=== PATIENT | male | born 1995 | race Caucasian/White ===

== ENCOUNTER 2017-05-12 05:27 | Day surgery (SDC) | payer OTHER ==
[~2017-05-12] VITALS: Ht 182.9 cm; Wt 88.5 kg
--- NOTE | ~2017-05-12 | O ---
[address] [address] OPERATIVE REPORT Name: SEAN DEL ROSARIO Room #: 150-1 [facility]#: [id number] Admission: 05/12/17 Attend Phys: Michael Sanderson MD Discharge: Date of : 89 Report #: [id number] THIS REPORT FOR: //name// CC: Galen Sanderson DATE OF SERVICE: 05/12/2017 SERVICE: Orthopedics. FACILITY: [facility]. SURGEON: Michael Sanderson MD BAILING MACHINE OPERATOR: None. PREOPERATIVE DIAGNOSES: 1. Right hip pain. 2. Right hip traumatic subluxation. 3. Right hip articular cartilage injury of the femoral head. 4. Right hip femoroacetabular impingement. 5. Right hip labral tear. 6. Rip hip loose body. POSTOPERATIVE DIAGNOSES: 1. Right hip pain. 2. Right hip traumatic subluxation. 3. Right hip articular cartilage injury of the femoral head. 4. Right hip femoroacetabular impingement. 5. Right hip labral tear. 6. Rip hip loose body. PROCEDURES: 1. Right hip arthroscopy with Cam osteoplasty. 2. Right hip arthroscopy with labral repair. 3. Right hip arthroscopic femoral head microfracture. 4. Right hip arthroscopic loose body removal with extensive arthroscopic debridement. 5. Arthroscopic subspine acetabuloplasty, extraarticular. ANESTHESIA TYPE: Single shot Regional with general endotracheal. COMPLICATIONS: None. DRAINS: None. [address] [place] [address] OPERATIVE REPORT Name: SEAN DEL ROSARIO Room #: [address]#: [id number] Admission: 05/12/17 Attend Phys: Michael Sanderson MD Discharge: Date of : 95 Report #: [id number] SPECIMENS: Femoral head articular cartilage lesion measuring 3.5 cm x 2 cm. ESTIMATED BLOOD LOSS: 10 mL. FINDINGS: 1. Traumatic femoral head articular cartilage injury, which was triangular in shape measuring 3.5 cm x 2 cm at its widest dimensions. This had a full delamination off of the subchondral bone on the femoral head. 2. Traumatic ligament of teres rupture treated with debridement. 3. Traumatic acetabular labral tear with partial healing in the far anterior location with incomplete healing more laterally, total of 3 [place] pivot NanoTack suture anchors with tape for the repair. 4. Cam osteoplasty performed under arthroscopic and fluoroscopic visualization. 5. Capsular repair completed with #2 Vicryl times 3. HISTORY AND INDICATIONS: The patient is a 21-year-old gentleman who was on a trail hike in [place] when he sustained a traumatic injury to the right hip, which was later diagnosed as a traumatic subluxation. He presented to the orthopedic clinic late after he continued to have significant pain and limitations with simple activities such as standing and walking. He had preoperative imaging including x-rays, which revealed intact articular space with no arthritic changes, graded Ton[place] 0. 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 He had an MRI, which showed a full thickness articular cartilage lesion of the femoral head with the loose body partially displaced into the pulvinar location, but also sitting between the acetabular cartilage and the femoral head. There was a labral tear on MRI as well. He had failed conservative measures and he was indicated for surgery. Risks, benefits, alternatives and indications for surgery were discussed with him in detail. Risks include, but not limited to pain, bleeding, infection, injury to nerves or blood vessels, persistent pain despite surgical intervention, failure of any repairs, reconstructions, progression of any preexisting chondral damage, stiffness, need for further surgery including revision as well as articular cartilage work as well as complications related to anesthesia such as stroke, heart attack, pulmonary complications, thromboembolic disease and . Despite these risks, he wished to proceed. PROCEDURE IN DETAIL: After right lower extremity was correctly identified in the preoperative holding area as the operative extremity, the patient underwent placement of a single shot regional nerve block. He was then taken to the operating room and placed supine on operating table and general anesthesia was induced without complication. He was padded appropriately. Prophylactic antibiotics were administered at appropriate time. Bilateral lower extremities were placed in traction boots and the C-arm was used to map out the femoral head and neck junction throughout for planned Cam osteoplasty. The right leg was then prepped and draped in standard sterile fashion. Time-out procedure was performed. Traction was applied to the right thigh. Total traction time was [address] [address] OPERATIVE REPORT Name: DEL ROSARIOSEAN W Room #: 150-1 [facility] M.Ana#: [id number] Admission: 05/12/17 Attend Phys: Michael Sanderson MD Discharge: Date of : 95 Report #: [id number] hour and 38 minutes. A standard anterolateral viewing portal was established followed by mid anterior working portal. There was an extensive amount of hematoma within the joint as well as synovial fluid and a large articular cartilage loose body. The transverse capsulotomy was performed to join the two anterior portals and then the synovitis was resected with a shaver and electrocautery. The articular cartilage fragment was then removed with the arthroscopic grasper. The pulvinar had significant amount of synovitis present and the ligamentum teres was torn with the stump that had flipped into the articular space and so a posterolateral portal was established in order to resect the inflamed synovium in the pulvinar and then resect the stump of the ligamentum teres as well as the loose articular cartilage. There were 3 or 4 other additional small pieces of articular cartilage on the order of 3-4 mm in size, which were resected with the shaver. The scope was then placed posterolaterally allowing the [place] microfracture drill bit to be placed in a perpendicular position to the femoral head articular cartilage lesion, which was exposed with the traction and some external rotation. After the fracture bed had been prepared, the [place] drill guide was used to perform microfracture with a 0.9 mm drill bit and then suction was turned on and blood egress was noted. The debris was then lavaged out of the hip and attention was turned towards the labrum. There was a detached labral tear that presumably occurred on the significant portion of the anterior aspect of the hip, but the far anterior portion of it had healed. There was some scarring that had occurred across the chondral labral junction in this location, I left this in place and did not do lysis of adhesions in this focal area because that would have been more detrimental. Capsule was reflected off the dorsal side of the labrum more laterally where the labrum was still torn/detached and then a limited acetabular subspine acetabuloplasty for extraarticular impingement was performed. Then the bur was used to abrade the edge of the acetabular rim for labral refixation and completed the repair with a mattress suture times 2 with the labral tape anchor. There was a contrecoup lesion of the labrum posteriorly and because the labrum was loose here, I elected for repair in this location, also there was a midsubstance tear in the labrum and so both the chondral labral injury and the midsubstance labral injury were addressed with a single suture anchor placed through the posterolateral portal with a mattress suture repair, total of 3 anchors were therefore used. At this point, the debris was lavaged out of the hip and then traction was let down. Using fluoroscopic and arthroscopic visualization, a Cam osteoplasty was performed in a standard fashion. The instruments were removed from the hip. The C-arm was brought in and I identified additional area that would benefit [address] [address] OPERATIVE REPORT Name: SEAN DEL ROSARIO Room #: 150-[address] [place] [address]#: [id number] Admission: 05/12/17 Attend Phys: Michael Sanderson MD Discharge: Date of : 95 Report #: [id number] from resection and then placed the scope and bur back into the hip and completed the Cam osteoplasty removing all bony debris. The capsule was then repaired because this was an instability event, a secure capsular repair was felt to be of significant importance. I debrided a portion of the capsule, so that a good tight repair was achieved with the hip in slight external rotation and #2 sutures were used to perform side to side capsular repair times 3. The instruments were removed from the hip. The portal sites were closed with deep followed by superficial Monocryl. Sterile dressing was applied. The patient was awakened from anesthesia and taken to recovery room in stable condition. There were no complications and all counts were recorded as correct. <ELECTRONICALLY SIGNED> By: Michael Sanderson MD 05/12/17 1252 1107 1227 Michael Sanderson MD /nt
[2017-05-12 07:15] VITALS: BP 154/83
[2017-05-12 11:14] VITALS: BP 154/83
== END 2017-05-12 11:45 | disposition home or self-care (01) ==
LOC: OR 05:27 → TBA 05:31 → OR 11:11
DX: S79.811A Other specified injuries of right hip, initial encounter (principal); S73.001A Unspecified subluxation of right hip, initial encounter; S72.051A Unspecified fracture of head of right femur, initial encounter for closed fracture; M25.851 Other specified joint disorders, right hip; S73.101A Unspecified sprain of right hip, initial encounter; X58.XXXA Exposure to other specified factors, initial encounter; Y93.9 Activity, unspecified; Y92.89 Other specified places as the place of occurrence of the external cause; Y99.9 Unspecified external cause status; M24.051 Loose body in right hip
CPT/HCPCS: 50010; 50101; 50386; 50612; 51538; 52298; 52304; 55430; 56524; 56527; 57092; 62110; 62900; 64041; 70005

== ENCOUNTER 2019-03-03 16:22 | Emergency (ER) | payer OTHER ==
[~2019-03-03] VITALS: Ht 180.3 cm; Wt 88.5 kg
[2019-03-03 19:05] LABS: URINE BILIRUBIN NEGATIVE (Negative); URINE BLOOD NEGATIVE (Negative); URINE CLARITY CLEAR; URINE COLOR YELLOW; URINE GLUCOSE-RANDOM* NEGATIVE (Negative); URINE KETONES NEGATIVE (Negative); URINE LEUKOCYTES NEGATIVE (Negative); URINE NITRITE NEGATIVE (Negative); URINE PROTEIN (DIPSTICK) NEGATIVE (Negative); URINE UROBILINOGEN 0.2 E.U./dl (0.2-1.0)
[2019-03-03 19:08] LABS: ABSOLUTE NEUTROPHILS 3.6 thou/uL (1.4-8.2); EOSINOPHILS 2.1 % (0.0-3.0); HEMATOCRIT 46.1 % (42.0-52.0); HEMOGLOBIN 15.8 gm/dL (14.0-18.0); LYMPHOCYTES 32.3 % (24.0-44.0); MCH 30.2 pg (26.0-34.0); MCHC 34.2 g/dL (28.0-37.0); MCV 88.4 fL (80.0-100.0); MONOCYTES 6.5 % (1.0-8.0); PLATELET COUNT 236 thou/uL (150-400); POLYS 58.1 % (36.0-66.0); RBC 5.21 mil/uL (4.50-6.00); WBC 6.1 thou/uL (4.0-11.0)
[2019-03-03 19:10] LABS: CALCIUM 9.7 mg/dL (8.5-10.1)
[2019-03-03 19:16] LABS: ALBUMIN 4.5 g/dL (3.4-5.0); TOTAL BILIRUBIN 0.6 mg/dL (<0.1-1.0)
[2019-03-03] MEDS ORDERED: ANUSOL-HC25 MG RECTAL (20:10)
[2019-03-03] MEDS ORDERED: NAPROSYN500 MG PO (20:10)
[2019-03-03 20:34] VITALS: BP 126/79
== END 2019-03-03 20:25 | disposition home or self-care (01) ==
LOC: ER 16:22
PROVIDERS: Physician Assistant
DX: K64.4 Residual hemorrhoidal skin tags (principal); R07.89 Other chest pain; Z88.2 Allergy status to sulfonamides